=== PATIENT | female | born 1980 | race Caucasian/White ===

== ENCOUNTER 2017-09-14 05:41 | Inpatient (IN) | payer SELFPAY, OTHER ==
[2017-09-14] MEDS ORDERED: morphine 4 MG/ML VIAL IV (06:15)
[2017-09-14] MEDS: ONDANSETRON 4 MG INJ IV (06:40)
[2017-09-14] MEDS: LORAZEPAM 2 MG INJ IV ×2 (06:40→07:36)
[2017-09-14] MEDS: SOD CHLORIDE 0.9% 1,000 ML IV ×5 (06:40→12:11)
[2017-09-14 06:54] LABS: WHITE BLOOD COUNT 21.2 10^3/ul (4.8-10.8)
[2017-09-14 06:54] LABS: ADD MAN DIFF? NO; BASOPHILS % 0.2 % (0.0-2.0); EOSINOPHILS % 0.2 % (0.0-7.0); HEMATOCRIT 35.3 % (37.0-47.0); HEMOGLOBIN 10.5 g/dl (12.0-16.0); LYMPHOCYTES # 1.3 10^3/ul (0.8-2.9); LYMPHOCYTES % 6.3 % (15.0-51.0); MEAN CORPUSCULAR HEMOGLOBIN 21.9 pg (29.0-33.0); MEAN CORPUSCULAR HGB CONC 29.7 g/dl (32.0-37.0); MEAN CORPUSCULAR VOLUME 73.7 fl (82.0-101.0); MEAN PLATELET VOLUME 9.6 fl (7.4-10.4); MONOCYTE # 1.1 10^3/ul (0.3-0.9); MONOCYTES % 5.2 % (0.0-11.0); NEUTROPHIL # 18.6 10^3/ul (1.6-7.5); NEUTROPHILS % 87.6 % (39.0-77.0); PLATELET COUNT 422 10^3/UL (140-415); RED BLOOD COUNT 4.79 10^6/ul (4.20-5.40); RED CELL DISTRIBUTION WIDTH 15.6 % (11.5-14.5)
[2017-09-14 07:17] LABS: ALANINE AMINOTRANSFERASE 138 IU/L (13-69); ALBUMIN 4.2 g/dl (3.3-4.9); ALKALINE PHOSPHATASE 314 IU/L (42-121); ANION GAP 15 (8-16); ASPARTATE AMINO TRANSFERASE 219 IU/L (15-46); BILIRUBIN,INDIRECT 0.3 mg/dl (0-1.1); BILIRUBIN,TOTAL 0.3 mg/dl (0.2-1.3); BLOOD UREA NITROGEN 10 mg/dl (7-20); CALCIUM 9.4 mg/dl (8.4-10.2); CARBON DIOXIDE 29 mmol/L (21-31); CHLORIDE 103 mmol/L (97-110); CREATININE 0.55 mg/dl (0.44-1.00); GLUCOSE 110 mg/dl (70-220); POTASSIUM 3.4 mmol/L (3.5-5.1); SODIUM 144 mmol/L (135-144)
[2017-09-14] MEDS: DIPHENHYDRAMINE 50 MG INJ IV (07:36)
[2017-09-14 08:55] LABS: LIPASE 17145 U/L (23-300)
[2017-09-14] MEDS ORDERED: ONDANSETRON 4 MG INJ IV ×2 (10:00→10:30)
[2017-09-14] MEDS ORDERED: ACETAMINOPHEN 325 MG TAB PO ×2 (10:00→10:30)
[2017-09-14] MEDS: CEFTRIAXONE 1 GM/50 ML (PMX) 50 ML IVPB (10:27)
[2017-09-14] MEDS ORDERED: LORAZEPAM 2 MG INJ IV (10:30)
[2017-09-14] MEDS ORDERED: MAGNESIUM HYDROXIDE 30ML CUP PO (10:30)
[2017-09-14] MEDS ORDERED: NACL 0.9% 3 ML SYG IV (10:30)
[2017-09-14] MEDS ORDERED: morphine 2 MG INJ IV (10:30)
[2017-09-14] MEDS ORDERED: DOCUSATE SODIUM 100 MG CAP PO (10:30)
[2017-09-14] MEDS ORDERED: HALOPERIDOL 5 MG INJ IM (11:00)
[2017-09-14] MEDS ORDERED: DILTIAZEM 25 MG INJ IV ×2 (11:00→12:00)
[2017-09-14] MEDS: hydrALAzine 20 MG INJ IV (11:22)
[2017-09-14] MEDS: ACETAMINOPHEN 650 MG SUPP PR (11:59)
[2017-09-14] MEDS: morphine 10 MG INJ IV (12:48)
[2017-09-14 13:03] LABS: IRON < 10 ug/dl (35-150)
[2017-09-14 13:12] LABS: TOTAL IRON BINDING CAPACITY 489 ug/dl (241-421)
[2017-09-14] MEDS: PIPER-TAZO 3.375 GM IV (PMX) 100 ML IVPB ×2 (13:47→21:16)
[2017-09-14] MEDS: DEXTROSE 5%-0.45% NACL 1,000 ML IV (13:48)
[2017-09-14] MEDS ORDERED: ACETAMINOPHEN 650 MG SUPP PR (15:30)
[2017-09-14] MEDS ORDERED: KETOROLAC 30 MG INJ IV (15:30)
[2017-09-14] MEDS ORDERED: VANCOMYCIN IV PER PHARMACY XX (15:30)
[2017-09-14] MEDS: ACETAMINOPHEN 1000MG/100ML IV 100 ML IVPB (15:36)
[2017-09-14 15:52] LABS: LACTIC ACID 1.8 mmol/L (0.5-2.0)
[2017-09-14] MEDS: VANCOMYCIN 2 GM in DEXTROSE 5% 500 ML IVPB (16:40)
[2017-09-14] MEDS ORDERED: VANCOMYCIN 2 GM in SOD CHLORIDE 0.9% 500 ML IVPB (17:00)
[2017-09-15] MEDS: PIPER-TAZO 3.375 GM IV (PMX) 100 ML IVPB ×4 (00:34→20:59)
[2017-09-15] MEDS: DEXTROSE 5%-0.45% NACL 1,000 ML IV ×2 (00:34→12:01)
[2017-09-15 00:45] LABS: LACTIC ACID 1.7 mmol/L (0.5-2.0)
[2017-09-15] MEDS: VANCOMYCIN 1 GM 250 ML IVPB ×3 (01:21→18:54)
[2017-09-15] MEDS: PANTOPRAZOLE 40 MG INJ IV (05:25)
[2017-09-15 06:17] LABS: ADD MAN DIFF? NO
[2017-09-15 06:26] LABS: WHITE BLOOD COUNT 26.6 10^3/ul (4.8-10.8)
[2017-09-15 06:26] LABS: ABNORMAL IP MESSAGE 1; BASOPHIL # 0.1 10^3/ul (0.0-0.1); BASOPHILS % 0.2 % (0.0-2.0); EOSINOPHILS % 0.1 % (0.0-7.0); HEMATOCRIT 32.1 % (37.0-47.0); HEMOGLOBIN 9.6 g/dl (12.0-16.0); LYMPHOCYTES # 1.2 10^3/ul (0.8-2.9); LYMPHOCYTES % 4.4 % (15.0-51.0); MEAN CORPUSCULAR HEMOGLOBIN 22.1 pg (29.0-33.0); MEAN CORPUSCULAR HGB CONC 29.9 g/dl (32.0-37.0); MEAN CORPUSCULAR VOLUME 73.8 fl (82.0-101.0); MEAN PLATELET VOLUME 10.3 fl (7.4-10.4); MONOCYTE # 0.8 10^3/ul (0.3-0.9); MONOCYTES % 3.1 % (0.0-11.0); NEUTROPHIL # 24.3 10^3/ul (1.6-7.5); NEUTROPHILS % 91.4 % (39.0-77.0); PLATELET COUNT 286 10^3/UL (140-415); RED BLOOD COUNT 4.35 10^6/ul (4.20-5.40); RED CELL DISTRIBUTION WIDTH 16.2 % (11.5-14.5)
[2017-09-15 06:31] LABS: POSITIVE DIFF @See below
[2017-09-15 06:58] LABS: LIPASE 3610 U/L (23-300)
[2017-09-15 06:59] LABS: ALANINE AMINOTRANSFERASE 120 IU/L (13-69); ALBUMIN 3.2 g/dl (3.3-4.9); ALBUMIN/GLOBULIN RATIO 0.96; ALKALINE PHOSPHATASE 226 IU/L (42-121); ANION GAP 12 (8-16); ASPARTATE AMINO TRANSFERASE 134 IU/L (15-46); BILIRUBIN,INDIRECT 0.8 mg/dl (0-1.1); BILIRUBIN,TOTAL 1.6 mg/dl (0.2-1.3); BLOOD UREA NITROGEN 11 mg/dl (7-20); CARBON DIOXIDE 28 mmol/L (21-31); CHLORIDE 107 mmol/L (97-110); CREATININE 0.66 mg/dl (0.44-1.00); GLUCOSE 130 mg/dl (70-220); MAGNESIUM 1.7 mg/dl (1.7-2.5); POTASSIUM 3.2 mmol/L (3.5-5.1); SODIUM 144 mmol/L (135-144); TOTAL PROTEIN 6.5 g/dl (6.1-8.1)
[2017-09-15] MEDS: D5W-0.45 NACL + KCL 20 MEQ 1,000 ML IV (15:43)
[2017-09-15 16:15] LABS: VANCOMYCIN,TROUGH 11.5 ug/ml (10.0-20.0)
[2017-09-15] MEDS: LORAZEPAM 2 MG INJ IV (17:00)
[2017-09-16] MEDS: PIPER-TAZO 3.375 GM IV (PMX) 100 ML IVPB ×3 (02:48→13:46)
[2017-09-16] MEDS: LORAZEPAM 2 MG INJ IV ×2 (02:48→09:25)
[2017-09-16] MEDS: VANCOMYCIN 1 GM 250 ML IVPB ×2 (03:50→11:18)
[2017-09-16] MEDS: D5W-0.45 NACL + KCL 20 MEQ 1,000 ML IV (04:29)
[2017-09-16] MEDS: PANTOPRAZOLE 40 MG INJ IV (05:23)
[2017-09-16 06:32] LABS: ADD MAN DIFF? NO
[2017-09-16 06:40] LABS: WHITE BLOOD COUNT 11.8 10^3/ul (4.8-10.8)
[2017-09-16 06:40] LABS: BASOPHILS % 0.2 % (0.0-2.0); EOSINOPHILS # 0.2 10^3/ul (0.0-0.5); EOSINOPHILS % 1.7 % (0.0-7.0); HEMATOCRIT 31.9 % (37.0-47.0); HEMOGLOBIN 9.5 g/dl (12.0-16.0); LYMPHOCYTES # 1.6 10^3/ul (0.8-2.9); LYMPHOCYTES % 13.7 % (15.0-51.0); MEAN CORPUSCULAR HEMOGLOBIN 22.1 pg (29.0-33.0); MEAN CORPUSCULAR HGB CONC 29.8 g/dl (32.0-37.0); MEAN CORPUSCULAR VOLUME 74.4 fl (82.0-101.0); MEAN PLATELET VOLUME 10.1 fl (7.4-10.4); MONOCYTE # 0.5 10^3/ul (0.3-0.9); NEUTROPHIL # 9.5 10^3/ul (1.6-7.5); PLATELET COUNT 236 10^3/UL (140-415); RED BLOOD COUNT 4.29 10^6/ul (4.20-5.40)
[2017-09-16 07:15] LABS: ALANINE AMINOTRANSFERASE 96 IU/L (13-69); ALBUMIN 3.2 g/dl (3.3-4.9); ALBUMIN/GLOBULIN RATIO 1.03; ALKALINE PHOSPHATASE 211 IU/L (42-121); ANION GAP 10 (8-16); ASPARTATE AMINO TRANSFERASE 87 IU/L (15-46); BILIRUBIN,INDIRECT 0.4 mg/dl (0-1.1); BILIRUBIN,TOTAL 0.4 mg/dl (0.2-1.3); BLOOD UREA NITROGEN 11 mg/dl (7-20); CALCIUM 8.3 mg/dl (8.4-10.2); CARBON DIOXIDE 25 mmol/L (21-31); CHLORIDE 109 mmol/L (97-110); GLUCOSE 55 mg/dl (70-220); MAGNESIUM 1.9 mg/dl (1.7-2.5); POTASSIUM 3.2 mmol/L (3.5-5.1); SODIUM 141 mmol/L (135-144); TOTAL PROTEIN 6.3 g/dl (6.1-8.1)
[2017-09-16] MEDS: DEXTROSE 50% 50 ML SYRINGE IV ×2 (09:25→13:16)
[2017-09-16] MEDS ORDERED: DEXTROSE 50% 50 ML SYRINGE IV (09:30)
[2017-09-16] MEDS ORDERED: GLUCOSE GEL 15 GRAM TUBE BUCCAL (09:30)
[2017-09-16] MEDS ORDERED: GLUCAGON 1 MG INJ IM (09:30)
[2017-09-16] MEDS ORDERED: GLUCOSE GEL 15 GRAM TUBE PO ×2 (09:30)
[2017-09-16] MEDS: POTASSIUM CHLORIDE 50 ML IVPB ×2 (11:18→12:32)
[2017-09-16] MEDS ORDERED: INSULIN ASPART [NOVOLOG] 3 ML PEN SC (11:50)
[2017-09-16] MEDS: INSULIN ASPART [NOVOLOG] 3 ML PEN SC ×2 (12:31→18:00)
[2017-09-16] MEDS ORDERED: INDOMETHACIN 50 MG SUPP PR (15:30)
[2017-09-16] MEDS ORDERED: LORAZEPAM 0.5 MG TAB PO (16:00)
[2017-09-17] MEDS ORDERED: ACCU-CHEK XX (02:00)
== END 2017-09-16 18:45 | disposition left against medical advice (07) | DRG 871 ==
LOC: E/R 05:41 → MS2 09-16 14:32 → TEL 11:42
DX: A41.9 Sepsis, unspecified organism (principal); K85.10 Biliary acute pancreatitis without necrosis or infection; F15.20 Other stimulant dependence, uncomplicated; F32.9 Major depressive disorder, single episode, unspecified; D50.9 Iron deficiency anemia, unspecified; D47.3 Essential (hemorrhagic) thrombocythemia; E87.6 Hypokalemia; D64.9 Anemia, unspecified; F41.9 Anxiety disorder, unspecified; D63.8 Anemia in other chronic diseases classified elsewhere; Z87.891 Personal history of nicotine dependence
CPT/HCPCS: 36415; 74176; 74181; 76705; 80053; 80202; 82962; 83540; 83605; 83690; 83735; 84703; 85025; 87040; 96374; 96375; 96376; 99285-25

== ENCOUNTER 2018-11-29 08:00 | Inpatient (IN) | payer MEDICAID ==
[2018-11-29] MEDS ORDERED: ONDANSETRON 4 MG INJ (08:49)
[2018-11-29] MEDS: ONDANSETRON 4 MG INJ IV ×3 (08:51→17:29)
[2018-11-29 09:01] LABS: ADD MAN DIFF? NO; URINE BLOOD (Dip) POC Trace-lysed (NEGATIVE); URINE GLUCOSE (Dip) POC Negative (NEGATIVE); URINE KETONES (Dip) POC Negative (NEGATIVE); URINE LEUKOCYTE EST (Dip) POC Negative (NEGATIVE); URINE NITRITE (Dip) POC Negative (NEGATIVE); URINE TOTAL PROTEIN POC 1+ (NEGATIVE)
[2018-11-29 09:02] LABS: WHITE BLOOD COUNT 16.8 10^3/ul (4.8-10.8)
[2018-11-29 09:02] LABS: BASOPHIL # 0.1 10^3/ul (0.0-0.1); BASOPHILS % 0.4 % (0.0-2.0); HEMATOCRIT 43.7 % (37.0-47.0); HEMOGLOBIN 13.3 g/dl (12.0-16.0); LYMPHOCYTES # 1.4 10^3/ul (0.8-2.9); LYMPHOCYTES % 8.1 % (15.0-51.0); MEAN CORPUSCULAR HEMOGLOBIN 24.8 pg (29.0-33.0); MEAN CORPUSCULAR HGB CONC 30.4 g/dl (32.0-37.0); MEAN CORPUSCULAR VOLUME 81.5 fl (82.0-101.0); MEAN PLATELET VOLUME 10.3 fl (7.4-10.4); MONOCYTE # 0.7 10^3/ul (0.3-0.9); MONOCYTES % 4.3 % (0.0-11.0); NEUTROPHIL # 14.5 10^3/ul (1.6-7.5); NEUTROPHILS % 86.5 % (39.0-77.0); PLATELET COUNT 300 10^3/UL (140-415); RED BLOOD COUNT 5.36 10^6/ul (4.20-5.40); RED CELL DISTRIBUTION WIDTH 14.4 % (11.5-14.5)
[2018-11-29 09:09] LABS: ALANINE AMINOTRANSFERASE 264 IU/L (13-69); ALBUMIN 4.9 g/dl (3.3-4.9); ALBUMIN/GLOBULIN RATIO 1.25; ALKALINE PHOSPHATASE 314 IU/L (42-121); ANION GAP 14 (5-13); ASPARTATE AMINO TRANSFERASE 353 IU/L (15-46); BILIRUBIN,INDIRECT 1.9 mg/dl (0-1.1); BILIRUBIN,TOTAL 2.4 mg/dl (0.2-1.3); BLOOD UREA NITROGEN 9 mg/dl (7-20); CARBON DIOXIDE 28 mmol/L (21-31); CHLORIDE 100 mmol/L (97-110); CREATININE 0.54 mg/dl (0.44-1.00); Estimated GFR > 60 mL/min (>60); GLUCOSE 186 mg/dl (70-220); POTASSIUM 3.6 mmol/L (3.5-5.1); SODIUM 142 mmol/L (135-144); TOTAL PROTEIN 8.8 g/dl (6.1-8.1)
[2018-11-29 09:18] LABS: ETHANOL < 10.0 mg/dl (0-0)
[2018-11-29] MEDS: SOD CHLORIDE 0.9% 1,000 ML IV ×3 (09:34→22:05)
[2018-11-29] MEDS: morphine 2 MG INJ IV ×3 (09:34→18:52)
[2018-11-29] MEDS: PIPER-TAZO 3.375 GM IV (PMX) 100 ML IVPB ×2 (09:35→17:04)
[2018-11-29] MEDS: KETOROLAC 30 MG INJ IV (09:35)
[2018-11-29 09:36] LABS: LIPASE 13288 U/L (23-300)
[2018-11-29 10:02] LABS: BARBITURATES Negative (NEGATIVE); BENZODIAZEPINES Negative (NEGATIVE); CANNABINOIDS Negative (NEGATIVE); COCAINE Negative (NEGATIVE); OPIATES Negative (NEGATIVE)
[2018-11-29 10:13] LABS: AMPHETAMINE/METHAMPHETAMINE Positive (NEGATIVE)
[2018-11-29] MEDS ORDERED: MAGNESIUM HYDROXIDE 30ML CUP PO (12:30)
[2018-11-29] MEDS ORDERED: ACETAMINOPHEN 325 MG TAB PO (12:30)
[2018-11-29] MEDS ORDERED: NACL 0.9% 3 ML SYG IV (12:30)
[2018-11-29] MEDS ORDERED: hydrALAzine 20 MG INJ IV (12:30)
[2018-11-29] MEDS ORDERED: HYDROCODONE/APAP (5/325) TAB PO (12:30)
[2018-11-29] MEDS ORDERED: DOCUSATE SODIUM 100 MG CAP PO (12:30)
[2018-11-29] MEDS ORDERED: NITROGLYCERIN (SL) 0.4 MG TAB SL (12:30)
[2018-11-29] MEDS ORDERED: ALBUTEROL/IPRATROPIUM (NEB) 3 ML AMP HHN (12:30)
[2018-11-29] MEDS ORDERED: LORAZEPAM 2 MG INJ IV (12:30)
[2018-11-29 13:14] LABS: INR 1.05; PROTIME 13.8 Sec (11.9-14.9); PT RATIO 1.1
[2018-11-29 13:15] LABS: PARTIAL THROMBOPLASTIN TIME 32.8 Sec (23.0-35.0)
[2018-11-29 13:48] LABS: FREE T4 (FREE THYROXINE) 1.55 ng/dl (0.64-1.79)
[2018-11-29] MEDS: HEPARIN 5,000 UNIT/1 ML VIAL SC (20:15)
[2018-11-30] MEDS: PIPER-TAZO 3.375 GM IV (PMX) 100 ML IVPB ×5 (00:41→23:39)
[2018-11-30] MEDS: SOD CHLORIDE 0.9% 1,000 ML IV ×3 (00:47→23:42)
[2018-11-30 05:10] LABS: ADD MAN DIFF? NO
[2018-11-30 05:13] LABS: BASOPHILS % 0.2 % (0.0-2.0); EOSINOPHILS # 0.1 10^3/ul (0.0-0.5); EOSINOPHILS % 0.8 % (0.0-7.0); HEMATOCRIT 36.8 % (37.0-47.0); HEMOGLOBIN 11.4 g/dl (12.0-16.0); LYMPHOCYTES # 1.3 10^3/ul (0.8-2.9); MEAN CORPUSCULAR HEMOGLOBIN 25.3 pg (29.0-33.0); MEAN CORPUSCULAR VOLUME 81.8 fl (82.0-101.0); MEAN PLATELET VOLUME 9.9 fl (7.4-10.4); MONOCYTE # 0.6 10^3/ul (0.3-0.9); MONOCYTES % 6.9 % (0.0-11.0); NEUTROPHIL # 7.1 10^3/ul (1.6-7.5); NEUTROPHILS % 77.8 % (39.0-77.0); PLATELET COUNT 230 10^3/UL (140-415); RED CELL DISTRIBUTION WIDTH 14.5 % (11.5-14.5)
[2018-11-30 05:13] LABS: WHITE BLOOD COUNT 9.1 10^3/ul (4.8-10.8)
[2018-11-30] MEDS: PANTOPRAZOLE 40 MG INJ IV (05:18)
[2018-11-30 05:49] LABS: ALANINE AMINOTRANSFERASE 148 IU/L (13-69); ALBUMIN 3.8 g/dl (3.3-4.9); ALKALINE PHOSPHATASE 240 IU/L (42-121); ASPARTATE AMINO TRANSFERASE 116 IU/L (15-46); BILIRUBIN,INDIRECT 1.6 mg/dl (0-1.1); BILIRUBIN,TOTAL 2.5 mg/dl (0.2-1.3); TOTAL PROTEIN 7.3 g/dl (6.1-8.1)
[2018-11-30 05:51] LABS: ANION GAP 12 (5-13); BLOOD UREA NITROGEN 11 mg/dl (7-20); CALCIUM 8.8 mg/dl (8.4-10.2); CARBON DIOXIDE 25 mmol/L (21-31); CHLORIDE 104 mmol/L (97-110); CREATININE 0.57 mg/dl (0.44-1.00); Estimated GFR > 60 mL/min (>60); GLUCOSE 66 mg/dl (70-220); MAGNESIUM 1.9 mg/dl (1.7-2.5); PHOSPHORUS 3.2 mg/dl (2.5-4.9); POTASSIUM 3.1 mmol/L (3.5-5.1); SODIUM 141 mmol/L (135-144)
[2018-11-30 05:55] LABS: HEMOGLOBIN A1C 5.6 % (0-5.9)
[2018-11-30 06:28] LABS: CHOLESTEROL 161 mg/dl (100-200)
[2018-11-30 06:28] LABS: CHOL/HDL RATIO 3.1 RATIO; HDL CHOLESTEROL 51 mg/dl (34-88); LDL CHOLESTEROL,CALCULATED 88 mg/dl; TRIGLYCERIDES 110 mg/dl (0-149)
[2018-11-30 06:32] LABS: AMYLASE 627 U/L (11-123)
[2018-11-30 06:54] LABS: THYROID STIMULATING HORMONE 0.164 MIU/L (0.465-4.680)
[2018-11-30 08:16] LABS: LIPASE 9637 U/L (23-300)
[2018-11-30] MEDS: HEPARIN 5,000 UNIT/1 ML VIAL SC ×2 (09:34→20:35)
[2018-11-30] MEDS: POTASSIUM CHLORIDE 20 MEQ POWDER FOR ORAL SOLN PO (18:44)
[2018-12-01 05:12] LABS: ADD MAN DIFF? NO
[2018-12-01] MEDS: PANTOPRAZOLE 40 MG INJ IV (05:15)
[2018-12-01] MEDS: PIPER-TAZO 3.375 GM IV (PMX) 100 ML IVPB ×4 (05:15→23:34)
[2018-12-01 05:19] LABS: BASOPHILS % 0.4 % (0.0-2.0); EOSINOPHILS # 0.1 10^3/ul (0.0-0.5); EOSINOPHILS % 1.9 % (0.0-7.0); HEMATOCRIT 36.7 % (37.0-47.0); HEMOGLOBIN 11.1 g/dl (12.0-16.0); LYMPHOCYTES # 1.4 10^3/ul (0.8-2.9); LYMPHOCYTES % 27.1 % (15.0-51.0); MEAN CORPUSCULAR HEMOGLOBIN 24.7 pg (29.0-33.0); MEAN CORPUSCULAR HGB CONC 30.2 g/dl (32.0-37.0); MEAN CORPUSCULAR VOLUME 81.6 fl (82.0-101.0); MONOCYTE # 0.4 10^3/ul (0.3-0.9); MONOCYTES % 7.9 % (0.0-11.0); NEUTROPHIL # 3.3 10^3/ul (1.6-7.5); NEUTROPHILS % 62.3 % (39.0-77.0); PLATELET COUNT 227 10^3/UL (140-415)
[2018-12-01 05:19] LABS: WHITE BLOOD COUNT 5.3 10^3/ul (4.8-10.8)
[2018-12-01 05:32] LABS: ALANINE AMINOTRANSFERASE 97 IU/L (13-69); ALBUMIN 3.2 g/dl (3.3-4.9); ALKALINE PHOSPHATASE 197 IU/L (42-121); AMYLASE 240 U/L (11-123); ASPARTATE AMINO TRANSFERASE 51 IU/L (15-46); BILIRUBIN,INDIRECT 0.9 mg/dl (0-1.1); BILIRUBIN,TOTAL 0.9 mg/dl (0.2-1.3); TOTAL PROTEIN 6.1 g/dl (6.1-8.1)
[2018-12-01 05:50] LABS: ANION GAP 9 (5-13); BLOOD UREA NITROGEN 9 mg/dl (7-20); CALCIUM 8.6 mg/dl (8.4-10.2); CARBON DIOXIDE 25 mmol/L (21-31); CHLORIDE 107 mmol/L (97-110); CREATININE 0.48 mg/dl (0.44-1.00); Estimated GFR > 60 mL/min (>60); POTASSIUM 3.4 mmol/L (3.5-5.1); SODIUM 141 mmol/L (135-144)
[2018-12-01 06:04] LABS: GLUCOSE 40 mg/dl (70-220)
[2018-12-01] MEDS: DEXTROSE 50% 50 ML SYRINGE IV ×2 (06:26→14:02)
[2018-12-01 06:53] LABS: LIPASE 4153 U/L (23-300)
[2018-12-01] MEDS: HEPARIN 5,000 UNIT/1 ML VIAL SC ×2 (08:52→20:22)
[2018-12-01] MEDS: DEXTROSE 5%-0.9% NACL 1,000 ML IV ×2 (08:53→20:18)
[2018-12-01] MEDS: ONDANSETRON 4 MG INJ IV (23:13)
[2018-12-02] MEDS: PIPER-TAZO 3.375 GM IV (PMX) 100 ML IVPB ×2 (05:10→12:11)
[2018-12-02] MEDS: PANTOPRAZOLE 40 MG INJ IV (05:10)
[2018-12-02 05:46] LABS: ADD MAN DIFF? NO
[2018-12-02 05:50] LABS: WHITE BLOOD COUNT 5.6 10^3/ul (4.8-10.8)
[2018-12-02 05:50] LABS: BASOPHILS % 0.2 % (0.0-2.0); EOSINOPHILS # 0.1 10^3/ul (0.0-0.5); EOSINOPHILS % 1.8 % (0.0-7.0); HEMATOCRIT 38.6 % (37.0-47.0); LYMPHOCYTES # 1.9 10^3/ul (0.8-2.9); MEAN CORPUSCULAR HEMOGLOBIN 24.9 pg (29.0-33.0); MEAN CORPUSCULAR HGB CONC 31.1 g/dl (32.0-37.0); MEAN CORPUSCULAR VOLUME 80.1 fl (82.0-101.0); MEAN PLATELET VOLUME 10.3 fl (7.4-10.4); MONOCYTE # 0.4 10^3/ul (0.3-0.9); MONOCYTES % 7.8 % (0.0-11.0); NEUTROPHIL # 3.2 10^3/ul (1.6-7.5); NEUTROPHILS % 56.8 % (39.0-77.0); PLATELET COUNT 307 10^3/UL (140-415); RED BLOOD COUNT 4.82 10^6/ul (4.20-5.40); RED CELL DISTRIBUTION WIDTH 13.9 % (11.5-14.5)
[2018-12-02 06:49] LABS: ANION GAP 10 (5-13); BLOOD UREA NITROGEN 2 mg/dl (7-20); CALCIUM 8.9 mg/dl (8.4-10.2); CARBON DIOXIDE 27 mmol/L (21-31); CHLORIDE 103 mmol/L (97-110); CREATININE 0.42 mg/dl (0.44-1.00); Estimated GFR > 60 mL/min (>60); GLUCOSE 153 mg/dl (70-220); POTASSIUM 3.2 mmol/L (3.5-5.1); SODIUM 140 mmol/L (135-144)
[2018-12-02 08:16] LABS: LIPASE 1043 U/L (23-300)
[2018-12-02 08:16] LABS: AMYLASE 136 U/L (11-123)
[2018-12-02] MEDS: DEXTROSE 5%-0.9% NACL 1,000 ML IV (09:00)
[2018-12-02] MEDS: HEPARIN 5,000 UNIT/1 ML VIAL SC (09:56)
== END 2018-12-02 13:20 | disposition left against medical advice (07) | DRG 440 ==
LOC: E/R 08:00 → MS1 11:47
DX: K85.10 Biliary acute pancreatitis without necrosis or infection (principal); K80.50 Calculus of bile duct without cholangitis or cholecystitis without obstruction; N20.0 Calculus of kidney; F15.10 Other stimulant abuse, uncomplicated; E80.6 Other disorders of bilirubin metabolism
CPT/HCPCS: 36415; 74176; 74181; 76705; 80048; 80053; 80061; 80076; 80307; 81003; 81025; 82150; 82962; 83036; 83690; 83735; 84100; 84439; 84443; 85025; 85610; 85730; 96374; 96375; 99285-25